=== PATIENT | female | born 1950 | race Hispanic/Latino ===

== ENCOUNTER 2018-03-31 09:03 | Outpatient (CLI) | payer MEDICARE, OTHER ==
[2018-03-31] MEDS ORDERED: KINEVAC IV ONE ×2 (10:31→11:00)
[2018-03-31 11:37] LABS: Hematocrit 38.1 % (30.3-42.9); Hemoglobin 12.7 gm/dl (10.1-14.3); Mean Corpuscular HGB Conc 33 % (30-34); Mean Corpuscular Volume 92 fl (79-97); Platelet Count 437 K/mm3 (140-440); Red Blood Count 4.17 M/mm3 (3.65-5.03); Red Cell Distribution Width 12.6 % (13.2-15.2)
[2018-03-31 11:56] LABS: Alanine Aminotransferase 28 units/L (7-56); Albumin 4.1 g/dL (3.9-5); BUN/Creatinine Ratio 20; Blood Urea Nitrogen 20 mg/dL (7-17); Calcium 9.6 mg/dL (8.4-10.2); Hemolysis Index 6
[2018-03-31 11:59] LABS: Bilirubin,Direct < 0.2 mg/dL (0-0.2)
--- NOTE | 2018-03-31 13:54 | Nuclear Medicine Report ---
HEPATOBILIARY SCAN: History: Abdominal pain, gallbladder dysfunction. Following the injection of the radionuclide, serial scanning was obtained over the right upper quadrant. Initial imaging of the liver demonstrates a relatively normal activity pattern. Progressive concentration of the radionuclide in the bile ducts, with filling of both the gallbladder and small bowel, is identified within a normal time period. The gallbladder ejection fraction is borderline decreased measuring 33%. The patient reports new abdominal pain and nausea and stronger cramps during the infusion of CCK. IMPRESSION: The cystic duct is patent. Normal biliary to bowel transit time of the radiotracer. Borderline decreased gallbladder ejection fraction measuring 33%. Symptomatology as described.
== END 2018-03-31 09:04 | disposition home or self-care (01) ==
LOC: NM 09:03
DX: K82.8 Other specified diseases of gallbladder (principal); E78.00 Pure hypercholesterolemia, unspecified; I10 Essential (primary) hypertension; E03.9 Hypothyroidism, unspecified; Z90.89 Acquired absence of other organs
CPT/HCPCS: 36415; 78227; 80048; 80076; 85027; A9537; J2805